=== PATIENT | female | born 1975 | race Caucasian/White ===

== ENCOUNTER → 2018-11-02 13:22 | Outpatient (CLI) | payer OTHER, SELFPAY ==
--- NOTE | 2018-11-02 13:28 | DI.RAD.S_ITS ---
PROCEDURE: FL SMALL BOWEL FOLLOW THROUGH INDICATIONS: r/o malrotation, outside CT A/P cecum left of midline COMPARISON: [facility], , CT ABDOMEN/PELVIS WITHOUT CONTRAST, 09/12/2018, 10:23. FINDINGS: KUB: Preprocedural children's service worker film demonstrates a normal bowel gas pattern, therefore barium was administered). No suspicious abdominal calcifications. Visualized solid organ contours appear normal. No suspicious bony abnormalities. Small bowel: There is normal transit time of barium through the small bowel. Small bowel loops are of normal caliber throughout. Mucosal folds are smooth and of normal thickness. No strictures, intraluminal masses, or extrinsic mass effects are noted. The terminal ileum is identified, and is normal in morphology but positioned at the right upper quadrant, to the right of midline, is also documented during CT scanning from 09/12/18. The large majority of the colon is located to the left of midline and almost the entirety of the small bowel is located to the right of midline.. 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 This study supports that diagnosis. The degree of malrotation is moderate, and no bowel obstruction or abnormal enlargement is associated. As noted, the ileocecal valve is located at the right upper quadrant but to the right of the spine midline. Also noted on CT scanning is that the relationship between the superior mesenteric artery and the superior mesenteric vein is near normal. Dictated by: García Goodson M.D. on 11/02/2018 at 15:29 Approved by: García Goodson M.D. on 11/02/2018 at 15:33
== END ==
PROVIDERS: PCP Family Medicine; Visit Provider Surgery
DX: R10.9 Unspecified abdominal pain (principal); Q43.3 Congenital malformations of intestinal fixation
CPT/HCPCS: 74250

== ENCOUNTER 2018-11-27 11:01 | Inpatient (IN) | payer OTHER, SELFPAY ==
[2018-11-19 13:49] VITALS: BMI 34.9
[2018-11-27] VITALS (17 sets, daily range): BP systolic 106–158; BP diastolic 51–95; PULSE 84–110; RESP 10–18; TEMP 36.2–36.9; O2SAT 91–99; BMI 35.6
--- NOTE | 2018-11-27 | PATH_ITS ---
[facility] Accession Number: [id number] . 01 Material submitted: . appendix - APPENDIX . 01 Clinical history: . EXPLORATORY LAPAROTOMY . 02 Diagnosis: Appendix, Exploratory Laparotomy: Appendix with fibrous obliteration of the tip. Negative for significant inflammation, atypia, or malignancy. MRV 11/29/2018 1014 Local . 02 Electronically signed: . Clarissa Centeno MD, Pathologist NPI- [id number] . 01 Gross description: . Received in formalin, labeled appendix, is an appendix (length-1.9 cm, diameter-0.5 cm) with schmitz-pink smooth and shiny serosa and a stapled resection margin. The lumen contains schmitz-irene solid soft material. The wall is up to 0.1 cm thick. No nodules, masses or lesions are identified. The resection margin is inked black and submitted en face in cassette A1 and the remaining appendix is bivalved and entirely submitted in cassette A2. ([id number]) /[facility] 11/28/2018 1656 Local . 02 Pathologist provided ICD-10: Q43.3 . 02 CPT . 860832 Performed at: 01 [facility] [address] [facility], [place], [place] [id number] MD Wilberto Le MD Phone: [phone] Performed at: 02 [facility] [address] [place], [place] [id number] MD Zhane Alfaro MD Phone: [phone]
[2018-11-27] MEDS: LACTATED RINGERS 1,000 ML 100 ML IV ×2 (11:50→14:10)
--- NOTE | 2018-11-27 12:36 | PM.PREOP ---
Pre-operative Note Interval Note History & Physical reviewed/Exam performed by Physician: Yes Changes to H&P: No
[2018-11-27] MEDS: CEFAZOLIN 2 GM/100 ML FROZ.PIGGY IV (13:05)
[2018-11-27] MEDS: BUPIVACAINE 0.5% (PF) VIAL 30 ML INJ (14:11)
--- NOTE | 2018-11-27 14:13 | SUR.OPER ---
Lithotomy on padded OR bed, head on pillow, arms secured on padded arm boards at <90 degrees abduction. Legs secured in padded yellow fins stirrups.
[2018-11-27] MEDS: HYDROMORPHONE 2 MG INJ 0.5 MG IV ×4 (15:19→20:23)
--- NOTE | 2018-11-27 15:20 | P.OP_ITS ---
Operative Date/Time/Diagnoses Date of procedure: 11/27/18 Time of procedure: 15:20 Pre-op diagnosis: malrotation Post-op diagnosis: same Procedure & Clinicians Procedure: Diagnostic laparoscopy Appendectomy Lysis of adhesions Hysteroscopy Same procedure as scheduled: Yes Indications: 43-year-old female whose had longstanding early satiety abdominal pain bloating belching since teenage years. Her symptoms became worse following recent . She underwent a workup that included a CT A/P and upper GI which demonstrated intestinal malrotation without volvulus. 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 -no evidence of small-bowel obstruction no adhesive bands between the duodenum and the colon Estimated Blood Loss (mL): 20 Procedure in detail: The patient was brought to the operating room and placed supine on the table. She she received 2 g of Ancef prior to skin incision. Bilateral lower extremity compression devices were applied. General anesthesia was induced and she was intubated with an endotracheal tube. A nguyen cath was placed under sterile condition. She was placed into lithotomy position. She was prepped and draped in sterile fashion. A time-out was performed ensure the correct patient procedure necessary equipment within the operating room. Dr. Harmon performed a hysteroscopy, please refer to her notes for further detail. I then proceeded with a diagnostic laparoscopy. An infraumbilical incision was made umbilical stalk was elevated and the fascia was sharply incised. The abdomen was entered atraumatically and a 10 mm trocar was then placed into the abdomen. Pneumoperitoneum was established and laparoscope was introduced, there was no evidence of injury upon entering. A 5 mm suprapubic trocar was placed under direct visualization. Dr Harmon continued with diagnostic laparoscopy of the pelvis please refer to her notes for further detail. Additional 5 mm working ports were placed 2 in the epigastrium in the midline and 1 in the right upper quadrant. A general inspection of the abdomen was performed. The small bowel content was in the right upper quadrant and the colon was in the left upper quadrant consistent with malrotation. The gallbladder was then grasped and retracted over the liver and inspection of the distal stomach and proximal duodenum demonstrated adhesive bands between the duodenum and the gallbladder. The common bile duct was identified and protected out of harm's way and the adhesions were then carefully taken down. This released the tension on the small bowel. Inspection was made for bands between the small bowel and the colon and there were none present. There were some additional adhesive bands between the body of the stomach and the anterior abdominal wall which were also taken down. The small bowel was run from the duodenum distally and there was no evidence of obstruction or further adhesive bands causing impingement. Inspection was made for hemostasis. The ports were then removed under direct visualization. The fascia of the umbilical umbilical incision was closed with 0 Vicryl suture and then and the skin was closed with Monocryl followed by the application of Dermabond. At the end of procedure the nguyen catheter was removed. The patient tolerated the procedure well she emerged from general anesthesia was extubated and transferred to the postoperative care unit in stable condition. Post-operative Condition: stable Disposition: observation
[2018-11-27] MEDS: ONDANSETRON 4 MG/2 ML INJ IV ×2 (15:34→17:23)
--- NOTE | 2018-11-27 15:35 | SUR.PHASEI ---
Pt c/o nausea, medicated with zofransandra
[2018-11-27] MEDS: METOCLOPRAMIDE 10 MG/2 ML INJ IV (15:44)
--- NOTE | 2018-11-27 16:00 | SUR.PHASEI ---
Report called to Mary Kate
--- NOTE | 2018-11-27 16:01 | SUR.PHASEI ---
Pt reported pain 1/10 and nausea improved.
--- NOTE | 2018-11-27 16:22 | SUR.PHASEI ---
Pt transferred to the floor with belongings bag and stuffed bear. VS stable. ABD sites CDI, no vaginal drainage. IV saline locked. Report to Mary Kate.
[2018-11-27] MEDS: DEXTROSE 5%-0.9% NS 1,000 ML 100 ML IV (16:32)
--- NOTE | 2018-11-27 16:50 | SUR.PHASEI ---
Addendum: Rt eyelid mildly droop. Pt reported this has been since , along with misshaped pupils.
[2018-11-27] MEDS: KETOROLAC 30 MG/ML VIAL IV ×2 (17:23→23:45)
[2018-11-27] MEDS: PROCHLORPERAZINE 10 MG/2 ML VIAL IV (22:02)
[2018-11-27] MEDS: HYDROMORPHONE 1 MG INJ 0.5 MG IV (23:46)
[2018-11-28] VITALS (7 sets, daily range): BP systolic 111–146; BP diastolic 66–78; PULSE 80–96; RESP 18–22; TEMP 36.8–37; O2SAT 96–98
--- NOTE | 2018-11-28 00:41 | PC.NURSE ---
Pt awake and requesting pain medication. Pt reporting abdominal pain 6/10 prior to ambulation. Pt reports pain at 8/10 with return to bed. Pt medicated with Dilaudid per EMAR and routine order of Toradol. Pt states minimal vaginal drainage and only shadow drainage on lap sites. Pt has history of CVA with minimal right facial droop and no appreciable right side weakness. Pt ambulating with standby assistance to the bathroom only. Pt voiding 300 cc without difficulty. Pt returned to bed and SCDs applied. Discussed importance of C,DB q1h while awake and calf pumping and ankle waving. Pt agreeable.
[2018-11-28] MEDS: DEXTROSE 5%-0.9% NS 1,000 ML 100 ML IV ×2 (02:08→12:03)
[2018-11-28] MEDS: SCOPOLAMINE 1 PATCH TOP (02:24)
--- NOTE | 2018-11-28 02:37 | PC.NURSE ---
Pt using call light for assistance to bathroom. Pt states still some nausea. Pt agreeable to scopalamine patch. Pt returned to bed and scopalamine patch applied. Pt states pain improved after pain meds. States she thinks that she will be able to fall back to sleep.
[2018-11-28] MEDS: KETOROLAC 30 MG/ML VIAL IV ×4 (06:28→23:52)
--- NOTE | 2018-11-28 08:14 | PM.PNPO.1 ---
Subjective Subjective Date Patient Seen: 11/28/18 Time Patient Seen: 08:14 Interval history: Couple episodes of small volume emesis early overnight, nothing further, not current nauseous. Pain is well controlled with IV Toradol. Ambulating voiding spontaneously no fever. Exam Vital Signs (past 8 hours): - 11/28/18 00:16 11/28/18 06:39 11/28/18 06:44 Temperature 98.6 F Pulse Rate 92 H Respiratory Rate 18 Blood Pressure 111/68 Pulse Oximetry 96 97 97 Oxygen Delivery Method Room Air Oxygen Flow Rate 0 Narrative Exam Narrative: General adult female alert oriented no acute distress Chest nonlabored respirations Abdomen soft incisions clean dry intact with Steri-Strips, appropriately tender to palpation Assessment & Plan Post-op Postoperative Procedures: Procedures Operation Date: 11/27/18 12:00 Actual Procedures Side Surgeon p Laparoscopy, Diagnostic /hysteroscopy Anselmo Hernandez MD s Diagnostic laparoscopy, lysis of adhesions ,appendectomy Anselmo Hernandez MD Postoperative day: 1 Postoperative status narrative: 43-year-old female postoperative day 1 status post diagnostic laparoscopy with lysis of adhesions secondary to intestinal malrotation doing well. Vital signs are within normal limits afebrile adequate urine output benign abdominal exam. -clear liquid diet -pLovenox for VTE prophylaxis -is tolerating clears and advanced to regular and possible discharge home today. Quality VTE Deep Vein Thrombosis/Pulmonary Embolism Present on Admission: No
[2018-11-28] MEDS: ENOXAPARIN 40 MG/0.4 ML SYRINGE SUBCUT (09:30)
[2018-11-28] MEDS: OXYCODONE 5 MG/5 ML ORAL SOLUTION PO ×2 (12:00→17:20)
--- NOTE | 2018-11-28 13:07 | PC.NURSE ---
Pt given liquid oxycodone earlier along with 30mg of iv toradol, helpful to patient. She is up independently and using the bathroom. Incisions x4 cdi and wnl. Pt is pumping breast milk throughout the day as she has a 7 month old child. Resting comfortably now.
--- NOTE | 2018-11-28 15:46 | CM.DANOTE ---
DCP Assessment: EMR Reviewed: patient is a 43 yr old female admitted for Diagnostic Laparoscopy and Appendectomy preformed by Dr. Harmon. Patients PCP is Dr. Davidson at [facility]. CM met with patient and patients at bed side. Patient was medicated and very sleepy during our visit. Patient stated she is I with ADL's at baseline. Patient lives at home with her who active duty but is on leave to help his for the next two weeks. Patients Husbands step dad is also here helping the family during patients recovery. Insurances: 1st payer: Whatever 2nd: Self pay Plan: Is to D/C home with help from family. no identified D/C planning needs noted at this time. Discharge Planning/Care Management CM Discharge Assessment Start: 11/28/18 15:42 Freq: Status: Active Protocol: Document 11/28/18 15:43 HS (Rec: 11/28/18 15:45 HS [id number]) Discharge Planning Assessment Assigned Business Solutions Analyst Estela Ivy RN DPOA/Assigned Designee Name Yasir Yee () Contact Information [phone] Advance Directives? No History Provided By Patient Has Patient been admitted in last 30 No days? Prior Living Arrangements House Household Members spouse,children Type of transporation used prior to Drives own vehicle admit Independent with ADL's Yes Is patient alert and oriented? Yes DME Already Rented / Owned Cane Discharge Plan Home Whiteboard Updated in Patient Room with Yes name and ext. # of Business Solutions Analyst Review Status In Process Next Review Type Continued Stay Review Pre-Anesthesia Assessment Start: 11/19/18 13:49 Freq: Status: Active Protocol: Document 11/19/18 13:49 CAB (Rec: 11/19/18 14:02 CAB [id number]) Pre-Anesthesia Assessment PAC Comment DIFFICULT IV START Patient Information Reviewed Via Chart Review Primary Care Provider Kyrie Davidson Seen Specialist in Last 12 Months Yes Specialist Seen General surgeon,Product Director, Sleep specialist Primary Language Fijian Motor Bus Driver Required No Height 154.94 cm Weight 83.915 kg Body Mass Index (BMI) 34.9 Hearing Ability Normal Visual Impairment No Limitations Visual Assist None Dentition Type Teeth, Natural Present,Teeth, Missing Barriers to Learning None Other Aids No Hx Anesthesia Reactions No: HTN post-op s/p , needed two epidurals Hx Family Anesthesia Reaction No Hx Malignant Hyperthermia No Hx Blood Transfusions No Anesthesia Review Requested No alcohol intake current alcohol intake frequency holidays/special occasions only Smoking Status Former smoker how long ago did patient quit smoking Quit 2016 Substance Use Type does not use Pain Present Pain Reported Comment Abdominal Musculoskeletal Symptoms Joint Pain,Joint Stiffness History of Falling (Recent or History of No ) Patient is completely paralyzed or No completely immobile Mental Status Oriented to own ability Is patient on oxygen? No Does patient have MARTÍNEZ/SOB No Hx Sleep Apnea No Currently Taking a Beta Liza Yes: Labetalol Can You Climb a Flight of Stairs Without Yes SOB Hx Chest Pain No Hx SOB No Hx Syncope or Dizziness No Anti-Coagulant Therapy No Has a Vegetable Trimmer No Cardiac Testing No Hx Pacemaker/ICD No Pacemaker Rep Required? No Cardiac Clearance Received Not Applicable Diet Type At Home Vegetarian dysphagia No Genitourinary Symptoms Abdominal Discomfort Bladder Pattern Urgency Urinary Catheter Present No Hx Urinary Self Catheterization No Diabetes No Lactating Yes Comment 11 months Have you traveled outside the [facility] in the last 30 days? Marital Status Lives With spouse,children Prior Living Arrangements House Number of Floors (Floors) One Floor Support System Parent(s),Spouse Does the Patient Have Assistance After Yes Surgery Patient Discharge Plan Description Return Home Comment Pt advised 3-4 day length of stay per surgeon Feels Safe in Current Environment Yes Been Physically Hurt or Threatened By a No Person in Current Environment Do you have thoughts of harming yourself None or others? Are you currently considering suicide? No Do you have a plan to hurt yourself or No Plan others? Do You Have Any Spiritual Beliefs That No May Affect Your HC Choices? Do You Have Any Cultural Practices That No May Affect Your HC Choices? Comment Eliseo Who Can We Speak to About Patient's Care Family, friends Identifying Code for Release of Patient Jack Santizo Health Care Proxy/Next of Kin Yasir () Health Care Proxy Emergency Contact Name Yasir () Emergency Contact Advance Directives? No Power of Executive Community Planning No PAC Instructions Do not shave/clip surgical site,Medications to take/avoid ,No ETOH/petroleum product on skin DOS,Post-op transportation,Pre-surgical wash,Sturdy shoes/comfortable clothes,Do not bring valuables and remove jewelry
[2018-11-28] MEDS: OXYCODONE IR 10 MG TABLET PO (19:40)
[2018-11-28] MEDS: OXYCODONE 5 MG/5 ML ORAL SOLUTION 10 MG PO (19:48)
[2018-11-28] MEDS: ACETAMINOPHEN 325 MG TABLET 650 MG PO (23:52)
[2018-11-29] VITALS: BP 151/80; PULSE 86; RESP 16; TEMP 36.8; O2SAT 96; O2SAT 97
[2018-11-29] MEDS: KETOROLAC 30 MG/ML VIAL IV (05:56)
[2018-11-29] MEDS: ACETAMINOPHEN 325 MG TABLET 650 MG PO (05:56)
[2018-11-29 06:00] VITALS: BP 135/89; PULSE 75; RESP 16; TEMP 36.8; O2SAT 98
[2018-11-29 08:00] VITALS: BP 147/87; PULSE 77; RESP 16; TEMP 36.9; O2SAT 99
--- NOTE | 2018-11-29 08:25 | PM.DS.1 ---
History of Present Illness History of Present Illness Date Patient Seen: 11/29/18 Time Patient Seen: 08:25 Chief complaint: [id number] ILANA * [id number] OBIE Narrative: This is a 43-year-old female with intestinal malrotation chronic abdominal pain nausea bloating who presented for a elective diagnostic laparoscopy and [place]'s procedure. 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 The bands were lysed her appendix was removed in addition she underwent hysteroscopy by a Dr. Harmon of [facility] which demonstrated no significant fibroid. Postoperatively the patient did well. Her diet was advanced as tolerated. On the date of discharge the patient is tolerating a regular diet without nausea vomiting. Her pain is controlled with oral medication she is afebrile and ambulatory. Status at Discharge Cognitive/behavioral status at discharge: oriented Functional status at discharge: independent ambulation Overall status at discharge: patient is back to baseline Time Spent with Patient Time spent: Greater than 30 minutes Exam Vital Signs (past 8 hours): - 11/29/18 06:00 Temperature 98.2 F Pulse Rate 75 Respiratory Rate 16 Blood Pressure 135/89 Pulse Oximetry 98 Oxygen Delivery Method Room Air Oxygen Flow Rate 0 Narrative Exam Narrative: General-no acute distress, well nourished HEENT-moist mucous membranes, no scleral icterus Neck-supple, no lymphadenopathy Chest- non labored respirations, clear to auscultation bilaterally Cardiac-regular rate no peripheral edema Abdomen-soft, incisions CDI with steristrips Extremities-warm, well perfused Neurological-alert and oriented, no focal deficits Discharge Plan Discharge Plan Patient Disposition: Home Discharge Med Rec/Prescriptions Prescriptions: New ibuprofen 200 mg tablet 800 mg PO Q6H PRN (Reason: pain) Qty: 60 RF: 0 docusate sodium [Colace] 100 mg capsule 100 mg PO BID Qty: 40 RF: 0 oxycodone 5 mg tablet 5 mg PO Q6H PRN (Reason: pain) Qty: 30 RF: 0 acetaminophen [Tylenol] 325 mg capsule 650 mg PO QID PRN (Reason: pain) Qty: 60 RF: 0 ondansetron HCl [Zofran] 4 mg tablet 4 mg PO Q8H Qty: 20 RF: 0 Continued aspirin 81 mg tablet,delayed release (DR/EC) 81 mg PO DAILY RF: 0 cyclobenzaprine 10 mg tablet 10 mg PO TID PRN (Reason: Muscle spasms) RF: 0 meloxicam 7.5 mg tablet 7.5 mg PO DAILY RF: 0 labetalol 100 mg tablet 100 mg PO BID RF: 0 prenat.vits,bienvenido,dez-qnqd-vdves tablet 1 tab PO DAILY RF: 0 Follow up/Referrals: Kyrie Davidson [Primary Care Provider] - Anselmo Hernandez MD [Physician] - Provider Discharge Instructions Diet: Regular Activity: No lifting >20 lbs x 4 weeks. Walking only for exercise for 4 [address] while taking narcotics. Skin/Wound/Dressing Care Report to your healthcare provider any signs of infection, such as:: chills, fever, increased pain, unusual drainage and unusual redness Visit Report/Discharge Packet Instructions: DI for Laparoscopy Discharge Data Primary Care Provider: Kyrie Davidson Quality VTE Deep Vein Thrombosis/Pulmonary Embolism Present on Admission: No
[2018-11-29] MEDS: ENOXAPARIN 40 MG/0.4 ML SYRINGE SUBCUT (08:54)
[2018-11-29] MEDS: LABETALOL 100 MG TABLET PO (08:54)
[2018-11-29] MEDS: OXYCODONE IR 5 MG TABLET PO (08:55)
--- NOTE | 2018-12-03 08:52 | PM.HP.1 ---
History of Present Illness History of Present Illness Chief complaint: [id number] ILANA * [id number] OBIE Narrative: This is a 43-year-old female with intestinal malrotation chronic abdominal pain nausea bloating who presented for a elective diagnostic laparoscopy and [place]'s procedure. Please refer to the H&P for further detail. There has been no interval change in her health. Patient History Medical History (Updated 11/27/18 @ 11:45 by Michelle Carrillo RN) Anxiety about health (Acute) Back pain (Acute) Coloboma of eye (Acute) CVA (cerebral vascular accident) (Acute 09/14/16) Difficult intravenous access (Acute) Former smoker (Acute) Gallstone (Acute) Gestational diabetes (Acute ~2017) Heart murmur (Acute) Hematuria (Acute) HTN (hypertension) (Acute) Kidney stone (Acute) Migraines (Acute) Spondylosis (Acute) Uterine fibroid (Acute) Surgical History (Updated 11/23/18 @ 10:33 by Kaity Velez RN) History of ankle surgery (Acute) History of (Acute) History of incision and drainage (Acute ~2009) Hx of eye surgery (Acute) Social History household members: spouse and children Smoking Status: Former smoker alcohol intake: current Family & Social History Social History: household members spouse,children Prior Living Arrangements House Safety & Behavioral: Feels Safe in Current Yes Environment Been Physically Hurt or No Threatened By a Person Suicidal Ideation Description None Suicide Plan Description No Plan Tobacco & Substance use: Smoking Status Former smoker alcohol intake current alcohol intake frequency holiday/special occasion Substance Use Type does not use Meds Home Medications and Allergies Home Medications Medication Instructions Recorded Confirmed Type aspirin 81 mg tablet,delayed 81 mg PO DAILY 10/22/18 11/27/18 History release cyclobenzaprine 10 mg tablet 10 mg PO TID PRN 10/22/18 11/23/18 History labetalol 100 mg tablet 100 mg PO BID 10/22/18 11/27/18 History meloxicam 7.5 mg tablet 7.5 mg PO DAILY 10/22/18 11/23/18 History prenat.vits,bienvenido,hbw-wxte-fmhjp 1 tab PO DAILY 10/22/18 11/27/18 History acetaminophen [Tylenol] 650 mg PO QID PRN #60 cap 11/29/18 Rx docusate sodium [Colace] 100 mg PO BID #40 cap 11/29/18 Rx ibuprofen 800 mg PO Q6H PRN #60 tab 11/29/18 Rx ondansetron HCl [Zofran] 4 mg PO Q8H #20 tab 11/29/18 Rx oxycodone 5 mg PO Q6H PRN #30 tab 11/29/18 Rx Allergies Allergy/AdvReac Type Severity Reaction Status Date / Time morphine Allergy Severe Feels Verified 11/27/18 11:16 like someone is sitting on my chest, I can't breathe pseudoephedrine Allergy Severe Convulsions Verified 11/27/18 11:16 [From [facility]] Review of Systems Review of Systems Narrative: A complete review of systems is negative except as noted in the HPI Exam Vital Signs (past 8 hours): Oxygen Delivery Method Room Air Oxygen Flow Rate 0 Narrative Exam Narrative: General-no acute distress, well nourished HEENT-moist mucous membranes, no scleral icterus Neck-supple, no lymphadenopathy Chest- non labored respirations, clear to auscultation bilaterally Cardiac-regular rate no peripheral edema Abdomen-soft, nontender, non distended Extremities-warm, well perfused Neurological-alert and oriented, no focal deficits Assessment & Plan Assessment and plan (1) Malrotation of intestine: Current visit: No Status: Acute Assessment & Plan narrative: This is a 43-year-old female with chronic intestinal malrotation without acute volvulus who presents for elective diagnostic laparoscopy, [place]'s procedure, appendectomy. Her questions have been answered she is in agreement with this plan. Please refer to the H& P from 10/22/[address] Harmon be performing a hysteroscopy as well as diagnostic laparoscopy for possible fibroids. Quality VTE Deep Vein Thrombosis/Pulmonary Embolism Present on Admission: No
--- NOTE | 2018-12-13 00:37 | PM.GYNOP.1 ---
Operative Date/Time/Diagnoses Date of procedure: 11/27/18 Time of procedure: 14:00 Pre-op diagnosis: Pelvic pain Possible endometriosis Possible pelvic adhesions Menorrhagia Post-op diagnosis: same Procedure & Clinicians Procedure: Procedures Operation Date: 11/27/18 12:00 Actual Procedures Side Surgeon p Laparoscopy, Diagnostic /hysteroscopy MD jerome Sparks Diagnostic laparoscopy, lysis of adhesions ,appendectomy Anselmo Hernandez MD Indications: Pelvic pain Menorrhagia Possible endometriosis Possible adhesions Surgeon: Gabi Harmon Anesthesia Type: General Operative Notes Findings: Normal uterus, tubes, and ovaries Both fallopian tube ostia observed No evidence of endometriosis or adhesions Closure Type: primary Specimen(s): none Applied: catheter Estimated blood loss (mL): 10 Blood products transfused: none Procedure in detail: After informed consent was obtained, the patient was taken to the operating room where she was placed in the dorsal supine position. After adequate general endotracheal anesthesia was achieved, she was placed in the dorsal lithotomy position, and prepped and draped in the usual sterile fashion. A time-out was performed. A bivalve speculum was placed into the vagina and the anterior lip of the cervix grasped with a single-tooth tenaculum. The cervical os was sequentially dilated until the Zumi uterine manipulator could pass easily into the endometrial cavity. The single-tooth tenaculum was removed from the anterior lip of the cervix. The bivalve speculum was removed from the vagina. Attention was then turned to the abdomen where 6 cc of 0.5% Marcaine with epinephrine were injected in the umbilical fold. The Veress needle was placed into the peritoneal cavity, and its placement confirmed by aspiration drop test. The abdominal cavity was insufflated with 4.2 L of CO2. The Veress needle was removed, and a 5 mm trocar was placed without difficulty. A 2nd incision was made midway between the pubic symphysis and umbilicus on the left side. A 5 mm trocar was placed under direct visualization. The tubes and ovaries were examined and were found to be normal. There was no evidence of endometriosis in the anterior or posterior cul-de-sacs, or bilateral ovarian fossa. There were no adhesions. The instruments were removed from the abdomen. The remainder of the procedure is completed by Dr. Hernandez. The incisions were closed by Dr. Hernandez. Attention was then turned to the vagina where the Zumi uterine manipulator was removed from the uterus. A bivalve speculum was placed into the vagina. A single-tooth tenaculum was placed on the anterior lip of the cervix. The hysteroscope passed easily into the endometrial cavity. Both fallopian tube ostia were observed. There were no polyps or fibroids. The hysteroscope was removed. The single-tooth tenaculum was removed from the anterior lip of the cervix. The bivalve speculum was removed from the vagina. Sponge, lap, and instrument counts were correct x2. The remainder of the procedure was completed by Dr. Hernandez. This is dictated in a separate operative report. Complications: none Post-operative Condition: stable Disposition: PACU Plan for aftercare: To acute care after recovery
== END 2018-11-29 11:00 | disposition home or self-care (01) | DRG 337 ==
PROVIDERS: Admitting Provider Surgery; PCP Family Medicine; Visit Provider Surgery
PROC: 0DN94ZZ Release Duodenum, Percutaneous Endoscopic Approach (ICD-10-PCS; CPT 49320; principal; 2018-11-27 12:00)
PROC: 0DN94ZZ Release Duodenum, Percutaneous Endoscopic Approach (ICD-10-PCS; CPT 49000; 2018-11-27 12:00)
DX: Q43.3 Congenital malformations of intestinal fixation (principal); I10 Essential (primary) hypertension; K66.0 Peritoneal adhesions (postprocedural) (postinfection)
CPT/HCPCS: 44970; 58555; 94762; J0690; J0780; J1100; J1170; J1650; J1885; J2250; J2405; J2704; J2765; J3010

== ENCOUNTER → 2018-12-12 13:22 | Outpatient (CLI) | payer OTHER, SELFPAY ==
[2018-11-27 17:22] VITALS: BMI 35.6
[2018-12-12 13:40] LABS: Bacteria Urine None Seen; WBC Urine None Seen (0-5/HPF)
[2018-12-12 14:10] LABS: Appearance Urine UA CLOUDY; Bilirubin Urine UA NEGATIVE (NEGATIVE); Color Urine UA YELLOW; Glucose Urine UA NEGATIVE (Negative); Ketones Urine UA TRACE (NEGATIVE); Leukocyte Esterase Urine UA NEGATIVE (NEGATIVE); Nitrite Urine UA NEGATIVE (Negative); Occult Blood Urine UA 3+ (Negative); Protein Urine UA 1+ (Negative); Specific Gravity Urine UA 1.025 (1.000-1.035); Urobilinogen Urine UA 0.2 E.U./dL (0.2)
[2018-12-12 14:20] LABS: Culture Indicated Urine Cult Not Indicated; RBC Urine 30-100/HPF (0-5/HPF); Squamous Epithelial Cell Urine 10-30 /HPF (0-5/HPF)
== END ==
PROVIDERS: PCP Family Medicine; Visit Provider Surgery
DX: R30.0 Dysuria (principal)
CPT/HCPCS: 81001

== ENCOUNTER → 2018-12-19 12:11 | Outpatient (CLI) | payer OTHER, SELFPAY ==
[2018-11-27 17:22] VITALS: BMI 35.6
--- NOTE | 2018-12-19 12:13 | DI.CT.S_ITS ---
PROCEDURE: CT ABDOMEN PELVIS W CON INDICATIONS: nausea status post laparoscopic [place]'s procedure TECHNIQUE: After the administration of oral and intravenous contrast, 5 mm thick sections acquired from the diaphragms to the symphysis. 5 mm thick coronal and sagittal reformats were performed. For radiation dose reduction, the following was used: automated exposure control, adjustment of mA and/or kV according to patient size. COMPARISON: [facility], RG, US PELVIC, 11/10/2018, 19:51. [facility], , [place] SMALL BOWEL FOLLOW THROUGH, 11/02/2018, 13:36. [facility], , CT ABDOMEN/PELVIS WITHOUT CONTRAST, 09/12/2018, 10:23. FINDINGS: Image quality: Excellent. ABDOMEN: Lung bases: Lung bases are clear. Heart size is normal. Solid organs: There is diffuse hepatic steatosis. There is a 3 mm gallstone within the gallbladder. The gallbladder is otherwise unremarkable. There is no intrahepatic or extra hepatic biliary ductal dilatation. Portal vein appears patent. The pancreas is unremarkable. There are subcentimeter hypoechoic foci within the superior spleen which are too small to fully characterize on this exam and likely represent splenic cysts or hemangiomas. No adrenal nodules are identified. No hydronephrosis. There is a 3 mm nonobstructing calcification within the right renal pelvis and there is a 0.7 cm hypoattenuated focus arising from the midpole of the left kidney, which is too small to fully characterize on this exam. Peritoneum and bowel: There are postsurgical changes of the abdomen with lateralization of the small bowel to predominantly within the right hemiabdomen and lateralization of the large bowel to predominantly within the left hemiabdomen. There is diverticulosis of the descending and sigmoid colon without evidence of acute diverticulitis. The appendix is not identified on this exam and a radiodense linear echogenic focus on the cecum on axial image 37 of series 2 is most consistent with a surgical clip from prior appendectomy. No pericolonic inflammatory fat stranding is identified. No free fluid or air. Nodes and vessels: No retroperitoneal or mesenteric adenopathy. Aorta and inferior vena cava are normal in caliber. There is mild calcified and noncalcified plaque of the abdominal aorta. Miscellaneous: There is a 2.0 cm fat-containing umbilical hernia. PELVIS: Genitourinary: Bladder wall thickness is normal. Miscellaneous: No inguinal hernias or adenopathy. There is a 2.0 cm peripherally enhancing cyst within the right adnexa. There is heterogeneous enhancement of the uterus with alternating areas of hypo-and hyper attenuation. Bones: There is a 1.5 cm hypoattenuating subcutaneous nodule of the right lower quadrant of the anterior abdominal wall on axial image 80/series 2, which may represent sequela of prior injection/trauma. There are mild multilevel degenerative changes of the thoracolumbar spine with bilateral L5 pars defects. IMPRESSION: 1. Diffuse hepatic steatosis. 2. Cholelithiasis without evidence of acute cholecystitis. 3. 3 mm nonobstructing nephrolith within the right renal pelvis. 0.7 cm hypoattenuating focus arising from the midpole of the left kidney, likely representing a renal cyst. Consider a multiphasic CT or MRI if there is continued clinical concern. 4. Colonic diverticulosis without evidence of acute diverticulitis. Postsurgical changes of the bowel as described above. 5. 2.0 cm peripherally enhancing cyst within the right adnexa (possibly a corpus luteal cyst), with heterogeneous enhancement of the uterus. Consider pelvic ultrasound for further evaluation if there is continued clinical concern. Dictated by: Eliot Ramírez M.D. on 12/19/2018 at 16:13 Approved by: Eliot Ramírez M.D. on 12/19/2018 at 16:57
== END ==
PROVIDERS: PCP Family Medicine; Visit Provider Surgery
DX: R11.0 Nausea (principal); K76.0 Fatty (change of) liver, not elsewhere classified; K80.20 Calculus of gallbladder without cholecystitis without obstruction; K57.30 Diverticulosis of large intestine without perforation or abscess without bleeding; K42.9 Umbilical hernia without obstruction or gangrene; N94.89 Other specified conditions associated with female genital organs and menstrual cycle; N20.0 Calculus of kidney; Z98.890 Other specified postprocedural states
CPT/HCPCS: 74177; Q9967